=== PATIENT | male | born 1950 | race Caucasian/White ===

== ENCOUNTER 2016-12-06 11:08 | Emergency (ER) | payer OTHER ==
[~2016-12-06] VITALS: Ht 180.3 cm; Wt 83.9 kg
[~2016-12-06 11:08] MED LIST: COZAAR100 MG PO; LISINOPRIL5 MG
[2016-12-06] MEDS ORDERED: FLOMAX0.4 MG PO (11:18)
[2016-12-06] MEDS ORDERED: DILTIAZEM 24HR120 M1 PO (16:18)
--- NOTE | 2016-12-07 01:00 | EKG ---
[facility] [address] [facility] [place], [place] [address] Signed Atrial fibrillation with rapid ventricular response Inferior infarct , age undetermined Abnormal ECG No previous ECGs available Confirmed by MAIK DARLING MD ([id number]) on 12/07/2016 1:00:22 AM Electronically Signed By: MAIK DARLING MD 12/07/160 PATIENT NAME: QUENTIN WAYNE CAMILO Electrocardiogram DATE OF : 54 PHYSICIAN: MAIK DARLING MD REPORT #: [id number] REPORT IS CONFIDENTIAL AND NOT TO BE RELEASED WITHOUT AUTHORIZATION
--- NOTE | 2016-12-07 01:01 | EKG ---
[facility] [address] [place] [address] Signed Normal sinus rhythm Left axis deviation Inferior infarct (cited on or before 06-DEC-2016) Abnormal ECG When compared with ECG of 06-DEC-2016 11:16, (Unconfirmed) Sinus rhythm has replaced Atrial fibrillation Vent. rate has decreased BY 100 BPM Confirmed by MAIK DARLING MD ([id number]) on 12/07/2016 1:01:21 AM Electronically Signed By: MAIK DARLING MD 12/07/16 0101 PATIENT NAME: QUENTIN WAYNE CAMILO Electrocardiogram DATE OF : 54 PHYSICIAN: MAIK DARLING MD REPORT #: [id number] REPORT IS CONFIDENTIAL AND NOT TO BE RELEASED WITHOUT AUTHORIZATION
[2016-12-07] MEDS ORDERED: ADVIL200 MG PO (10:01)
== END 2016-12-06 16:39 | disposition home or self-care (01) ==
LOC: ED 11:08
DX: I48.91 Unspecified atrial fibrillation (principal); I10 Essential (primary) hypertension; Z87.442 Personal history of urinary calculi; Z79.899 Other long term (current) drug therapy
CPT/HCPCS: 71010; 80053; 83735; 84484; 85025; 85610; 93005; 93010; 96361; 96374; 96375; 99284; J2704; J7030

== ENCOUNTER 2016-12-06 23:39 | Inpatient (IN) | payer OTHER ==
[~2016-12-06] VITALS: Ht 180.3 cm; Wt 83.7 kg
[~2016-12-06 23:39] MED LIST changes: +DILTIAZEM 24HR120 M1 PO; +FLOMAX0.4 MG PO
--- NOTE | 2016-12-07 03:10 | NUR ---
PT ARRIVED TO FLOOR VIA STRETCHER WITH DIRECTOR INSTITUTION. PT AT BEDSIDE. PT TRANSFERED TO BED ON HIS OWN. PT HR INCREASED TO 140'S WITH ACTIVITY. WILL ENCOURAGE REST AT THIS TIME.
--- NOTE | 2016-12-07 03:30 | NUR ---
PT ASSESSMENT COMPLETED. 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 SMILE SYMETRICAL. PT IS VERY TALKATIVE AND TALKING ABOUT HIS LIFE NAD CAREER. PT HR WHEN RESTING IS 80-110'S AND WHEN PT STANDS TO USE URINAL PT HR INCREASED TO 150. WILL ENCOURGAE TO REST AT THIS TIME.
--- NOTE | 2016-12-07 04:46 | NUR ---
NURSING HOME SERVICE DEMONSTRATOR, MYSELF, AND PATIENT IN PATIENT ROOM TO COUNT PT MONEY IN HIS WALLET AND PLACE IN HOSPITAL SAFE. HOME SERVICE DEMONSTRATOR BROUGHT MONEY TO SAFE. PT HAS TICKET TO RETRIEVE MONEY IN HIS WALLET.
--- NOTE | 2016-12-07 08:04 | EKG ---
[facility] [address] [place] [address] Signed Atrial fibrillation with rapid ventricular response with premature ventricular or aberrantly conducted complexes Left axis deviation Inferior infarct (cited on or before 06-DEC-2016) Abnormal ECG When compared with ECG of 06-DEC-2016 23:44, (Unconfirmed) Previous ECG has undetermined rhythm, needs review Confirmed by MAIK DARLING MD ([id number]) on 12/07/2016 8:04:32 AM Electronically Signed By: MAIK DARLING MD 12/07/16 0804 PATIENT NAME: QUENTIN WAYNE Electrocardiogram DATE OF : 54 PHYSICIAN: MAIK DARLING MD REPORT #: [id number] REPORT IS CONFIDENTIAL AND NOT TO BE RELEASED WITHOUT AUTHORIZATION
--- NOTE | 2016-12-07 08:56 | NUR ---
PT HEART RATE INCREASED TO THE 150'S CARDIZEM 5MG IVP GIVEN AT THIS TIME, HEART RATE NO CHANGE DR MUELLER NOTIFIED.
--- NOTE | 2016-12-07 09:16 | NUR ---
TALKED WITH DR DARLING NEW ORDER ON MEDICATIONS. PHARMANCY NOTIFIED ALSO OF NEW ORDERS. PT HERE ALSO AT THIS TIME.
--- NOTE | 2016-12-07 09:22 | NUR ---
pt able to feel that his heart rate has chnaged. medicated with 120mg cardizem at this time. heart rate 140's at this time.
--- NOTE | 2016-12-07 09:27 | NUR ---
PT C/O JAW AND TOUNGE PAIN AT THIS TIEM DR DARLING NOTIFIED NEW ORDER RECEIVED, 5MG CARDIZEM PUSH GIVEN AT THIS TIME. HEART RATE DID NOT RESPONED CONTIOUES TO BE IN THE 134-150 AND IRREGULAR AT THIS TIME.
[2016-12-07] MEDS ORDERED: ADVIL200 MG PO (10:01)
--- NOTE | 2016-12-07 10:02 | NUR ---
MED REC COMPLETE--PER PATIENT
--- NOTE | 2016-12-07 10:13 | NUR ---
PT UP TO THE BATHROOM, HAD BMAND BACK TO BED. HEART RATE INCREASED TO THE 200'S AND BACK TO THE 120-130 BUT VERY IRREGULAR AT THIS TIME.
--- NOTE | 2016-12-07 10:39 | NUR ---
STARTED CARDIZEM DRIP AT THIS TIME AT 5MG/HR DUE TO HEART RATE INCREASED TO THE 180-200'S WHEN UP. CURRENT HR IS 120-130'S.
--- NOTE | 2016-12-07 10:57 | NUR ---
CONTIOUES TO BE ON THE CARDIZEM DRIP AT 5MG/HR HEART RATE REMAISN IRREGULAR FROM 1TEENS-150'S AT THIS TIME.
--- NOTE | 2016-12-07 11:52 | NUR ---
PT WAS ADMITTED EARLY THIS MORNING TO CCU. HE SEEMED ALERT, ORIENTED AND NOT TO UPSET WITH THE NEW ONSET AFIB ACCORDING TO HIM. HE SHARED HIS BACKGROUND, AND WHAT BROUGHT HE AND HIS TO [place].. HIS CAME VERY PLEASANT, EXTENDED A BLESSING. HE COMMENTED ON HOW PROFESSIONAL AND PLEASANT EVERYONE HAS BEEN. HE SEEMED CONFIDENT IN CARE HE IS RECEIVING. WILL FOLLOW NEEDED
--- NOTE | 2016-12-07 12:11 | NUR ---
PT RECEIVED HIS LUNCH AND WHEN HE STARTED TO EAT HEART RATE INCREASED TO THE 170'S PT C/O'S OF BEING HAT AND SWEATING. NO CHEAST PAIN, JAW, OR TOUNGE PAIN AT THIS TIME. BP 105/70 (75). WITH EATTING HEART RATE REMAINS IN THE 130-150'S. AND AT TIMES INTO THE 160'S
--- NOTE | 2016-12-07 12:16 | NUR ---
PT REMAIN ON THE CARDIZEM DRIP AT 5MG/HR
--- NOTE | 2016-12-07 15:13 | NUR ---
PT C/O CHEST 07/20 AT THIS TIME, AND DR DARLING NOTIFIED NEW ORDERS RECEIVED.
--- NOTE | 2016-12-07 15:18 | NUR ---
DR DARLING NOTIFIED OF PT CHANGES, NEW ORDERS, EKG AND TROPIN T ORDERED. HEART RATE 95-100" AND BP 113/74 AT THIS TIME
--- NOTE | 2016-12-07 15:28 | NUR ---
CHEST PAIN IS GONE AT THIS TIME, HEART RATE REMAINS IN THE 100'S AND BP 113/74 AT THIS TIME. L;AB HERE TO OBTAIN SAMPLE.
--- NOTE | 2016-12-07 16:57 | NUR ---
DR MILLS IN THE UNIT AT THIS TIME, NEW ORDERS RECEIVED. LOPRESSOR 25MG PO GIVEN AT THIS TIME AND CARDIZEM DRIP INCREASED TO 5MG/HR. THIS DUE TO HEART RATE 120'S-130'S AT TIMES.
--- NOTE | 2016-12-07 17:24 | NUR ---
PT ORDERED DINNER AT THIS TIME, HEART RATE CONTIOUES TO BE IN THE 90-100'S AT TIMES, CARDIZEM DRIP REMAINS AT 5MG/HR. NO FURTHER C/O'S PAIN OR NUMBNESS.
--- NOTE | 2016-12-07 18:02 | NUR ---
PT UP TO THE BATHROOM HEART RATE INCREASED, BUT CAME BACK DOWN. SITTING AT THE EDGE OF THE BED TO EAT AND HEART RATE REMAINS IN THE 130'S WITH SITTING UP
--- NOTE | 2016-12-07 18:36 | NUR ---
cardizem drip off at this time, heart rate 84, 94/59 (65). pt lying in bed no c/o's at this time, is at the bedside.
--- NOTE | 2016-12-07 19:30 | NUR ---
PT REPORT RECIVED. PT CURRENTLY OFF CARDIZEM GTT. WILL CONTINUE TO CLOSELY MONITOR.
--- NOTE | 2016-12-07 20:35 | NUR ---
PT ASSESSMENT COMPLETED. PT REMAINS IN A.FIB AT THSI TIME WITH DILTIAZEM GTT OFF. PT IS UP AND DOWN. ENCOURAGED TO TRY AND REST AND NOT CONTINUE GETTING UP AND DOWN.
--- NOTE | 2016-12-07 21:56 | NUR ---
PT RESTING IN BED. RESTARTED DILTIAZEM GTT AT 2.5. PT HR MAINTAINING 110-125 FOR LAST 15 MINUTES. WILL CONTINUE TO CLOSELY MONITOR. ENCOURAGED PT TO TRY AND REST AND NOT GET UP AT THIS TIME. ASKED PT TO CALL IF HE NEEDS TO GET UP SO HE DOES NOT PULL OUT HIS IV.
--- NOTE | 2016-12-07 22:15 | NUR ---
PT REMAINS SOMEWHAT RESTLESS. ENCOURAGED PT TO GET SOME REST AND TRY TO RELAX AT THIS TIME. UPON ADMIT PT DID INFORM STAFF HE OCCASIONALLY DRINKS WINE WITH HIS . NO SWEATING OR SHAKINESS PRESENT. PT IS ALERT AND ORIENTED AT THIS TIME. WILL CONTINUE TO CLOSELY MONITOR PT.
--- NOTE | 2016-12-07 23:37 | NUR ---
PT UP AT BEDSIDE ENTERED ROOM. PT LAYING BACK DOWN AT THIS TIME. ENCOURAGED PT TO GET REST TO HELP TO HR STATUS. WILL CONTINUE TO MONITOR.
--- NOTE | 2016-12-08 01:00 | NUR ---
PT RESTING IN BED AT THIS TIME. WILL CONTINUE TO [facility].
--- NOTE | 2016-12-08 03:27 | NUR ---
PT RESTIN IN BED AT THIS TIME. WILL CONTINUE TO MONTIOR.
--- NOTE | 2016-12-08 04:37 | NUR ---
PT TELE OFF. ENTERED ROOM AND PT UP OUT OF BED. EXPLAINED TO PT HE NEEDS TO TRY AND REST AND RELAX AT THIS TIME. WITH ACTIVITY PT HR UP TO 140. ONCE PT SITTING BACK DOWN AND RELAXING PT HR 100-110. PT DILTIAZEM GTT CURRENTLY AT 5. WILL CONTINUE TO CLOSELY MONITOR.
--- NOTE | 2016-12-08 06:17 | NUR ---
PT RESTING IN BED AT THIS TIME. WILL CONTINUE TO MONITOR.
--- NOTE | 2016-12-08 06:40 | NUR ---
increased cardizem gtt to 7.5. will continue to closely monitor.
--- NOTE | 2016-12-08 08:37 | NUR ---
REPORT RECEIVED FROM ELI BERNSTEIN. PT'S ARRIVES AROUND 0815. DISCUSSED WITH PT'S CONCERNS ABOUT PATIENT WANTING TO LEAVE THIS HOSPITAL TO BE SEEN BY A DIAZO TECHNICIAN AND AN CANVAS WORKER APPRENTICE. ASSESSMENT COMPLETE. PATIENT APPEARS SOMEWHAT ANXIOUS/AGITATED AND IS VERY EAGER TO "MOVE FORWARD WITH A PLAN TO TREAT HIS HEART." PATIENT EDUCATION UNDERTAKEN AND ATTEMPTED TO EDUCATE PATIENT ON CURRENT TREATMENTS HE IS RECEIVING IN THE HOSPITAL, SUCH A CARDIZEM DRIP AND PO MEDICATIONS TO HELP CONTROL HIS HEART RATE. PATIENT DOES NOT THINK THAT "ANYONE IN THIS HOSPITAL IS CAPABLE OF GIVING HIM THE TREATMENT HE NEEDS." WHILE PT SITTING IN BED, HEART RATE IS IN THE 100-110, AFIB. PATIENT UP TO BATHROOM AND HEART RATE ELEVATES TO HIGH 170s. PT DENIES FEELING DIZZY OR HAVING ANY CHEST PAIN WITH THIS HIGH OF A HEART RATE. PT NOW SITTING IN CHAIR. PT DENIES BEING HUNGRY FOR BREAKFAST BUT ENCOURAGED TO ORDER SOME FOOD, AND HIS CAM HELPS PATIENT ORDER BREAKFAST. PATIENT'S OUTSIDE OF THE ROOM STATES, "HE'S GOOFY." QUESTIONED HER FURTHER ON THIS AND SHE AGREES THAT HIS DEMEANOR AND BEHAVIOR IS OUTSIDE OF HIS NORMAL. CONTINUE TO MONITOR.
--- NOTE | 2016-12-08 09:33 | NUR ---
DR. MILLS IN ROOM EVALUATING PATIENT AND DISCUSSING PT'S PLAN OF CARE WITH PT AND WITH HIS . HEART RATE WHILE RESTING IN BED IS ANYWHERE FROM 88-110. PT ATE A GOOD PORTION OF BREAKFAST. DILT GTT NOW INFUSING AT 10 MG/HR. PT STILL SOMEWHAT CONFUSED ABOUT TREATMENT PLAN AND WANTING TO POTENTIALLY D/C. CONTINUE TO MONITOR.
--- NOTE | 2016-12-08 10:47 | NUR ---
HEARD PATIENT CALLING MY NAME OUT AND WENT TO CHECK ON PATIENT. PT REPORTS "WHATEVER THAT MIXTURE OF DRINK YOU JUST GAVE ME, MADE ME SHORT OF BREATH AND DIZZY FOR ABOUT 3-4 MINUTES. I'M NOT NOW, BUT I WAS A FEW MINUTES AGO." PATIENT'S BLOOD PRESSURE RE-CHECKED AND IS 90/60 (66) AT THIS TIME. HEART RATE IN THE 70-80s AT THIS TIME. DILT GTT AT 5 MG/HR. PT ASKING QUESTIONS ABOUT THE IV INFUSIONS HE IS RECEIVING. PT'S HAS LEFT FOR NOW BUT STATES SHE WILL RETURN AROUND 1200. PT'S ASKED HOW MUCH ETOH PT DRINKS AND SHE STATES, "I'M GONE A LOT FOR WORK, THEREFORE I'M NOT COMPLETELY SURE, BUT I DO KNOW IT'S NOT UNCOMMON FOR HIM TO HAVE A BEER WITH BREAKFAST." SHE ALSO REPORTS THAT HE STOPPED DRINKING AFTER TYRELL TIME, BUT RESUMED DRINKING ABOUT A MONTH AGO. PT'S REPORTED LAST DRINK WAS POTENTIALLY SATURDAY OF LAST WEEK. CONTINUE TO MONITOR. PT ORIENTED TO CALL LIGHT AND HOW TO USE IT.
--- NOTE | 2016-12-08 12:04 | NUR ---
PATIENT YELLS OUT "CYDNEY!" FROM HIS ROOM. PT NOTED TO BE STANDING AT BEDSIDE AND STATES, "SOMETHINGS WRONG! I'M LOOPY AND IM NOT SURE WHAT IS GOING ON AROUND HERE. THE CEILING IS THE FLOOR." PATIENT HELPED BACK INTO BED HE FURTHER DESCRIBED HIS FEELINGS. PT ALSO NOTED THAT HE WAS SHORT OF BREATH, HOWEVER PATIENT APPEARS TO BE BREATHING AT A RELATIVELY NORMAL RATE OF 18 AND NO USE OF ACCESSORY MUSCLES NOTED. PT ASKED TO PLEASE STAY IN BED WHILE HE IS FEELING THIS WAY. BLOOD PRESSURE CHECKED AND FOUND TO BE 112/74. PT'S HEART RATE IS TRENDING DOWN AND NOW RANING INTHE 60-80s. DILT GTT TURNED OFF AT THIS TIME. DR. MILLS TO BE NOTIFIED OF PT'S EXPRESSION OF SOB AND CONFUSION. PT IS HOWEVER ALERT AND ORIENTED. CONTINUE TO MONITOR.
--- NOTE | 2016-12-08 12:40 | NUR ---
PATIENT NOTED TO BE UP IN ROOM AND ATTEMPTING TO UNPLUG IV POLES. PT ASKED AGAIN TO PLEASE USE CALL LIGHT BEFORE GETTING UP OUT OF BED AND ATTEMPTING TO WALK AROUND IN ROOM. PT NEEDING TO USE THE BATHROOM. PT ASKED TO USE URINAL TO VOID INTO. PT USES URINAL AND THEN DUMPS THE URINE IN THE TOILET AND FLUSHES. PT AGAIN ASKED TO ALLOW THE RN TO DO THIS SO WE CAN MONITOR HOW MUCH HE VOIDS. PT AGREEABLE BUT KEEPS SAYING "I'M FINE, I DON'T NEED YOU TO DO THAT FOR ME." LUNCH ORDERED FOR PATIENT. PT ASKED IF HE IS INTERESTED IN HAVING AN ALCOHOLIC BEVERAGE WITH HIS LUNCH AND HE STATES, "YA KNOW, AFTER ALL OF THIS, I'M NOT SURE I'M EVER GOING TO DRINK AGAIN. I LIKE TO HAVE A GLASS OF WINE WITH CAM AT DINNERTIME, BUT WHY MESS UP A GOOD THING WHEN YOU GOT A GOOD THING GOING." PT AGAIN ASKED AND INSTRUCTED TO USE CALL LIGHT BEFORE HE GETS UP OUT OF BED. PT AGREEABLE.
--- NOTE | 2016-12-08 14:29 | NUR ---
PATIENT ATE APPROX 75% OF HIS LUNCH. PT'S NOW BACK IN ROOM. PT IN GOOD SPIRITS AND WANTING TO KNOW IF WE CAN TAKE OUT HIS IV NOW THAT HIS IV INFUSIONS ARE DONE. PATIENT ALSO ASKING WHEN WE ARE GOING TO TAKE OFF HIS HEART MONITOR. PT RE-INFORMED OF PLAN WHILE HE IS IN THE HOSPITAL. PT AMBULATES DOWN TO SHOWER AND SHOWERS INDEPDENTELY WITHOUT DIFFICULTY. PT VERY STEADY ON HIS FEET. PT DENIES HAVING ANY FURTHER LIGHTHEADED/DIZZY/SOB EPISODES SINCE EARLIER THIS AM. CONTINUE TO MONITOR.
--- NOTE | 2016-12-08 15:46 | EKG ---
[facility] [address] [facility] [place] [address] Signed Atrial fibrillation with rapid ventricular rate with premature ventricular or aberrantly conducted complexes Left axis deviation Inferior infarct (cited on or before 06-DEC-2016) Possible Anterior infarct , age undetermined Abnormal ECG Confirmed by SALAS MILLS MD ([id number]) on 12/08/2016 3:46:01 PM Electronically Signed By: SALAS MILLS MD 12/08/16 1546 PATIENT NAME: ROSANAQUENTIN ALLEN Electrocardiogram DATE OF : 54 PHYSICIAN: SALAS MILLS MD REPORT #: [id number] REPORT IS CONFIDENTIAL AND NOT TO BE RELEASED WITHOUT AUTHORIZATION
--- NOTE | 2016-12-08 15:46 | EKG ---
[facility] [address] [facility] [place] [address] Signed Atrial fibrillation with rapid ventricular response with premature ventricular or aberrantly conducted complexes Left axis deviation Inferior infarct (cited on or before 06-DEC-2016) Abnormal ECG When compared with ECG of 07-DEC-2016 00:46, (Unconfirmed) No significant change was found Confirmed by SALAS MILLS MD ([id number]) on 12/08/2016 3:46:27 PM Electronically Signed By: SALAS MILLS MD 12/08/16 1546 PATIENT NAME: QUENTIN WAYNE Electrocardiogram DATE OF : 54 PHYSICIAN: SALAS MILLS MD REPORT #: [id number] REPORT IS CONFIDENTIAL AND NOT TO BE RELEASED WITHOUT AUTHORIZATION
--- NOTE | 2016-12-08 15:47 | EKG ---
[facility] [address] [facility] [place] [address] Signed Atrial fibrillation with rapid ventricular response with premature ventricular or aberrantly conducted complexes Left axis deviation Inferior infarct (cited on or before 06-DEC-2016) Abnormal ECG When compared with ECG of 07-DEC-2016 07:44, (Unconfirmed) No significant change was found Confirmed by SALAS MILLS MD ([id number]) on 12/08/2016 3:46:54 PM Electronically Signed By: SALAS MILLS MD 12/08/16 1547 PATIENT NAME: QUENTIN WAYNE Electrocardiogram DATE OF : 54 PHYSICIAN: SALAS MILLS MD REPORT #: [id number] REPORT IS CONFIDENTIAL AND NOT TO BE RELEASED WITHOUT AUTHORIZATION
--- NOTE | 2016-12-08 16:13 | NUR ---
DR. MILLS IN ROOM TO RE-EVALUATE PATIENT. PT REPORTS NOT BEING ABLE TO SLEEP. PATIENT APPEARS SOMEWHAT DELIRIOUS AND CONFUSED. PT EXPLAINS HIS FEELING OF FEELING DIZZY EARLIER AND THE PICTURE ON THE WALL WITH THE LEWIS BECOMING BLURRY YESTERDAY. PT REORIENTED THAT THIS OCCURED TODAY, NOT YESTERDAY. PT NOW TELLING RN AN ELABORATE STORY ABOUT A FISHING TRIP HE WOULD LIKE TO TAKE THREE GALS ON. PT REMAINS IMPULSIVE, DETACHING HIMSELF FROM THE HEART MONITOR AND AMBULATING INTO THE BATHROOM INDEPENDENTLY, DESPITE BEING ASKEED TO CALL RN PRIOR TO GETTING OUT OF BED. IV RE-DRESSED DUE TO SOME DRIED BLOOD ON DRESSING. CONTINUE TO [facility].
--- NOTE | 2016-12-08 16:30 | NUR ---
PATIENT MOVED TO A TELEMETRY TO ALLOW PATIENT TO HAVE A LITTLE MORE INDEPENDANCE IN THE ROOM. PT SEEMS BORED. CONTINUE TO MONTIOR.
--- NOTE | 2016-12-08 18:29 | NUR ---
CALLED [facility] ABOUT OBTAINING MEDICAL RECORDS FROM [id number] S/P ABLATION PROCEDURE. PHYSICAL CHART WILL HAVE TO BE RETRIEVED AND INSTRUCTED BY THE [facility] CLINICAL STUDIES SPECIALIST TO CALL BACK IF NO RECORDS HAVE BEEN RECEIVED BY Saturday.
--- NOTE | 2016-12-08 19:21 | NUR ---
PATIENT ASKING FOR HIS SHIRT TO PUT ON AND DOESN'T UNDERSTAND WHY HE NEEDS TO STAY IN A GOWN. PT INSTRUCTED ABOUT BEING IN THE HOSPITAL AND THE NECESSITY TO WEAR A PATIENT GOWN. PT CONTINUES TO AMBULATE INTO BATHROOM INDEPENDENTLY AND VOIDS AND HAS A LIQUID BM. PT NOW ASKING FOR A BEER. DR. MILLS NOTIFIED AND ORDER REC'D TO ALLOW PT TO HAVE 1-2 BEERS. PT'S HEART RATE IN THE 70-80s AT REST. CONTINUE TO MONITOR. REPORT TO FILING CLERK RNs.
--- NOTE | 2016-12-08 19:45 | NUR ---
PT SHIFT REPORT GIVEN. PT AT BEDSIDE AT THIS TIME. WILL COTNINUE TO CLOSELY MONITOR.
--- NOTE | 2016-12-08 20:45 | NUR ---
PT RESTING IN BED WHEN I ENTERED ROOM. PT PLEASENT, BUT APEARS CONFUSED. PT AWARE HR IS IN A.FIB AND HE IS RECIVING MEDICATIONS TO HELP CONTROL IT, BUT REMOVES THE TELEMETRY AT TIME AND STATES HE DOESNT KNOW WHAT IT IS FOR EVEN AFTER EXPLANING. WILL CONTINUE TO CLOSELY MONITOR AT THIS TIME.
--- NOTE | 2016-12-08 21:00 | NUR ---
PT ASSESSMENT COMPLETED. FILER FINISH ARE STRONG AND EQUAL, FACIAL EXPRESIONS SYMETRICAL. PT IS IMPULSIVE, BUT PLEASANT. WILL CONTINUE TO CLOSELY MONITOR PT AND REORIENT NEEDED.
--- NOTE | 2016-12-08 23:00 | NUR ---
PT UP TO BATHROOM AND PULLING AT TELE. REORIENTED PT AND ENCOURAGED TO GO BACK TO BED TO TRY AND GET SOME REST. WILL CONTINUE TO CLOSELY MONITOR.
--- NOTE | 2016-12-08 23:40 | NUR ---
CALLED MD TO UPDATED MD. PT IS VERY RESTLESS AND REMEMBERS HE IS AT THE HOSPITAL BUT DOES NOT REMEMBER WHY HE IS HERE OR MEDICAL PROCEDURES AND TREATMENTS HE HAS RECIVED SINCE HIS ADMITION. MD ORDERED ONE TIME DOSE OF SEROQUEL. PT HAS NOT SLEPT MUCH PAST SEVERAL DAYS. WILL CONTINUE TO MONITOR.
--- NOTE | 2016-12-09 | NUR ---
PT IN HALLWAY FULLY CLOTHED IN HOME CLOTHES WITH BELONGINGS IN HAND. PT KNOWS HE IS IN THE HOSPITAL BUT DOES NOT REMBER WHY HE IS HERE OR TREAMENT HE IS RECIVING. PT IS UPSET WITH HIS . PT STATES "I DONT KNOW WHY SHE WOULD JUST LEAVE ME HERE BY MYSELF AND GO HOME WITHOUT ME". REORIENTED PT THAT IT IS THE MIDDLE OF THE NIGHT AND HIS WENT HOME TO GO TO BED. PT WANTED TO CALL . CALLED PT AND UPDATED REGUARDING SITUATION. PT TALKED WITH HER AND DECIDED SHE WOULD COME IN AND STAY WITH HIM FOR THE NIGHT.
--- NOTE | 2016-12-09 01:00 | NUR ---
GAVE PT HIS MEDICATIONS SINCE HE IS AWAKE. PT IS LAYING DOWN IN BED WITH AT BEDSIDE. WILL CONTINUE TO ENCOURAGE REST AND MONITOR. WILL CALL MD IF PT REMAINS UNABLE TO SLEEP.
--- NOTE | 2016-12-09 01:45 | NUR ---
NOTICED PT HR 120 WITH ARTIFACT. ENTERED PT ROOM TO CHECK ON PT. PT STATED PT WAS ABLE TO SLEEP AND JUST NEEDED TO GET UP AND PEE. UPDATED TO LET ME KNOW IF PT CANT GO BACK TO SLEEP. WILL CONTINUE TO MONITOR.
--- NOTE | 2016-12-09 03:40 | NUR ---
PT WOKE AT 0315 AND REMOVED HIS TELEMETRY. PTS CALLED ME INTO THE ROOM. PT IS VERY CONFUSED AND DOES NOT KNOW WHERE HE IS OR WHAT IS GOING ON. TALKED WITH PT AND PT AND ASKED HIM TO PLEASE STAY HERE WHILE I SPEAK WITH THE MD. PT IS CONFUSED AND WONDERING AROUND CCU UNIT WITH . CALLED MD. PER MD NEW ORDER FOR CT WITHOUT CONTRAST.
--- NOTE | 2016-12-09 03:45 | NUR ---
CALLED MD BACK TO UPDATE PT IS HESITANT ABOUT THE SCAN AND MAY NOT FOLLOW THROUGH WITH THIS PLAN. PER MD GIVE ANOTHER DOSE 12.5 SEROQUEL.
--- NOTE | 2016-12-09 03:50 | NUR ---
PT FOLLOWING COMANDS AT THIS TIME AND STATES HE IS NOW ON BORED WITH THE SCAN. PT BROUGHT TO CT SCANNER WITH DAVID, THIS RN, AND PT . PT BROUGHT TO CT IN A WHEELCHAIR.
--- NOTE | 2016-12-09 04:00 | NUR ---
DID NOT TAKE 0400 VITALS PER ORDER. WHEN PT WEARING TELE. STAFF WERE ABLE TO CLOSELY MONITOR HR. MD AWARE PT REMOVED FOR A PERIOD OF TIME AND REFUSED TO HAVE IT REPLACED.
--- NOTE | 2016-12-09 04:10 | NUR ---
PT FOLLOWING COMMANDS AND WAS COOPERATIVE WITH CT SCAN. PT BACK IN ROOM AT THIS TIME.
--- NOTE | 2016-12-09 04:15 | NUR ---
ASKED PT IF I COULD PLACE HIS TELEMETRY BACK ON TO MONITOR HIS HEART. PT WAS OKAY WITH REPLACING TELE. I ASKED THE PT TO RELAX IN HIS ROOM AND REORIENTED HIM TO THE [place]CE. PT STATED "I MAY JUST LAY BACK DOWN HERE AND TRY TO GET SOME SLEEP". I RECOMENDED THAT WOULD BE A GREAT IDEA. WILL CONTINUE TO CLOSELY MONITOR.
--- NOTE | 2016-12-09 04:37 | NUR ---
PT SUB PLANT MANAGER ARE STONG AND EQUAL, FACE IS SYMETRICAL, SHOULDER SHRUG IS EQUAL. WILL CONTINUE TO MONITOR.
--- NOTE | 2016-12-09 05:00 | NUR ---
ANGELINE CHONG TO UPDATE ON PATIENTS STATUS. READ CT RESULTS. DOES NOT WANT TO GIVE ANY OTHER MEDICATIONS AT THIS TIME. WILL DRAW LABS THIS AM AND NEW ORDERS FOR A UA. PT IS HEADING HOME AT THIS ITME.
--- NOTE | 2016-12-09 05:52 | NUR ---
PT UP WANDERING THE HALLS AT THIS TIME. PT REMAINS CONFUSED BUT PLEASANT.
--- NOTE | 2016-12-09 06:45 | NUR ---
PT HEART RATE THROUGHOUT THE NIGHT HAS BEEN 70-90'S AT REST AND 90-120'S WITH ACTIVITY. PT IS CURRENTLY WEARING A TELEMETRY UNIT TO ALLOW PT TO BE MORE MOBILE. PT DENIES DIZINESS, SOB, OR CHEST PAIN WHEN ASKED. WILL CONTINUE TO MONITOR.
--- NOTE | 2016-12-09 12:00 | NUR ---
BP-88/59. DR. MILLS AWARE. LISA HELD. WILL MONITOR BP Q 1/2 HR FOR NOW. PATIENT DENIES DIZZINESS.
--- NOTE | 2016-12-09 14:10 | NUR ---
ambulating in department. HEART RATE APPROX 103. IS WITHOUT C/O.
--- NOTE | 2016-12-09 19:00 | NUR ---
UP TO BR. HR TO 170. PATIENT STATES HE IS FINE. IS ASKING MANY QUESTIONS ABOUT MEDICATIONS AND HOW AND WHO MAKES THEM. HAS WILD LOOK IN EYE. IS PARANOID. DR. MILLS UPDATED. HE WILL COME TO SEE PATIENT. PATIENT FACE IS FLUSHED.
--- NOTE | 2016-12-09 19:10 | NUR ---
LINA SWEENEY HERE TO SEE PATIENT. PATIENT IS VERY UPSET AND REFUSING TO TALK TO MD. HR REMAINS IN 170. CONTIUNE TO BE PARANOID.
--- NOTE | 2016-12-09 19:10 | NUR ---
ENC PATIENT TO LAY DOWN. STAFF CALLED PATIENT .
--- NOTE | 2016-12-09 19:30 | NUR ---
REFUSING MEDICATION THAT WAS ORDERED BY DR. MILLS. NEXT SHIFT AWARE.
--- NOTE | 2016-12-09 19:39 | NUR ---
REPORT GIVEN. IS IN ROOM TALKING WITH PATIENT. PATIENT REMAINS AGITATED.
--- NOTE | 2016-12-09 19:45 | NUR ---
PT HR 110-130 AT REST A THIS TIME. MD IS AWARE. WHILE MD WAS IN ROOM PT HR WAS 140-180.
--- NOTE | 2016-12-09 19:45 | NUR ---
MD AWARE PT WILL NOT TAKE MEDICATIONS AT THSI TIME. WILL REASSESS AT A LATER TIME. PT AT BEDSIDE TRYING TO TALK WITH PT AND HELP CALM PT DOWN. WILL GIVE PT TIME WITH TO TRY AND RELAX.
--- NOTE | 2016-12-09 20:10 | NUR ---
PT CAME OUT AND SAID PT WOULD LIKE TO TAKE HIS MEDICATIONS NOW. TALKED WITH PT AND EXPLAINED WHAT I WAS GIVING BEFORE ADMINISTERING. PT TOOK MEDICATIONS WITH NO ISSUES. PT ASSESSMENT COMPLETED AT THIS TIME. PT LUNGS CLEAR AND BOWEL TONES ACTIVE. PT USES BATHROOM ON HIS OWN. PT WILL REMAIN AT BEDSIDE THROUGHOUT THE NIGHT.
--- NOTE | 2016-12-09 20:30 | NUR ---
GOT PT ICE CREAM AND PILLOWS AND BLANKETS FOR HIS . EDUCATED PT AND IF THEY NEED ANYTHING AT ALL TO CALL US. WILL CONTINUE TO MONITOR.
--- NOTE | 2016-12-09 20:57 | NUR ---
PT UP TO BATHROOM AND PT HR 120'S WITH ACTIVITY. WHILE PT RESTING IN BED HR NOW 80-100'S.
--- NOTE | 2016-12-09 22:00 | NUR ---
pt came out at 2200 and needed to go home for some beloningings and stated she would be back just shortly. per pt pt has been sleeping. will continue to monitor.
--- NOTE | 2016-12-09 23:56 | NUR ---
PT BACK TO CCU AT 2245. PT HAS BEEN SLEEPING DURING THIS TIME. NO OTHER ISSUES. WILL CONTINUE TO ENCOURCOURAGE REST AT THIS TIME.
--- NOTE | 2016-12-10 00:33 | NUR ---
PT FULL ASSESSMENT HELD PER ORDERS TO ALLOW PT TO REST SINCE PT HAS NOT SLEPT MUCH THE DAST 3 DAYS. PT REMAINS ON TELEMETRY AND AT BEDSIDE. WILL CONTINUE TO CLOSELY MONITOR.
--- NOTE | 2016-12-10 02:26 | NUR ---
GAVE PT MEDICATION LATE D/T PT FINALLY ABLE TO REST. PT HAS NOT SLEPT MUCH THE LAST 3 NIGHTS. PT UP TO BATHROOM. WILL CONTINUE TO CLOSELY MONITOR. WHEN PT UP TO BATHROOM PT HR 100-120. AT REST HR 80-100. WILL CONTINUE TO ENCOURAGE REST AT THIS TIME.
--- NOTE | 2016-12-10 04:00 | NUR ---
PT TELEMETRY OFF. ENTERED PT ROOM. PT SITTING ON SIDE OF BED. ASKED PT IF I COULD FIX THE MONITOR AND PT DENIED STATING "I DON'T WANT TO WEAR THAT ANY LONGER". EDUCATED PT THE PURPOSE OF MONITORING HIS HEART. PT CONTINUED TO REFUSE. PT AT BEDSIDE AND ASKED TO HAVE A FEW MINUTES TO TALK WITH PATIENT. EDUCATED TO CALL WHEN THEY MADE A PLAN AND IF I COULD REPLACE THE MONITOR. WILL CONTINUE TO MONITOR.
--- NOTE | 2016-12-10 04:45 | NUR ---
PT CAME OUT TO GET ME. PT OKAY WITH TELE MONITOR GOING BACK IN PLACE TO MONITOR HR THE REMAINDER OF THE MORNING. SANJU LCONTINUE TO MONITOR.
--- NOTE | 2016-12-10 05:48 | NUR ---
pt resting in room at this time. headed home to gather some patient belonging to bring in for pt. will continue to monitor.
--- NOTE | 2016-12-10 06:30 | NUR ---
PT RESTING IN BED. WILL CONTINUE TO MONTIOR.
--- NOTE | 2016-12-10 07:04 | NUR ---
PT REFUSING TO TAKE MORNING CARDIZEM, BUT STATES HE WILL TAKE IT WHEN HIS GETS BACK TO THE HOSPITAL. PT RESTING IN BED AT THIS ITME. WILL CONTINUE TO MONITOR. PT STATED SHE WOULD BE BACK AROUND 7AM.
--- NOTE | 2016-12-10 07:41 | NUR ---
REPORT RECEIVED FROM ELI BERNSTEIN. PT REFUSING TO TAKE ANY FURTHER MEDICAITONS UNTIL HIS GABRIELLE RETURNS FROM HOME, WHICH SHE DOES AT 0730. DISCUSSED PLAN OF CARE WITH DR. MILLS BRIEFLY AND SOME CHANGES TO BE MADE REGARDING PT'S DOSE OF CARDIZEM. CURRENTLY ON TELE #10, HR IS 90-105, AFIB. CONTINUE TO MONITOR.
--- NOTE | 2016-12-10 08:28 | NUR ---
PT ORIENTED, EXCEPT TO DATE. AT BEDSIDE. PLANS TO RETURN HOME AT DISCHARGE WITH . NO BARRIERS KNOWN.
[2016-12-10] MEDS ORDERED: METOPROLOL SUC200 MG PO (09:26)
--- NOTE | 2016-12-10 09:26 | NUR ---
DR. MILLS IN ROOM TO EVALUATE PATIENT. PT TO D/C HOME THIS AM ON TWO NEW PRESCRIPTIONS FOR HEART RATE CONTROL. PT'S AFFECT REMAINS VERY FLAT AT THIS TIME AND PATIENT DOES NOT CONTRIBUTE TO DISCUSSION VERY MUCH. PT'S CAM IN ROOM AND ATTENTIVE AND DISCUSSES CARE WITH DR. MILLS. CONTINUE TO MONITOR.
[2016-12-10] MEDS ORDERED: DILTIAZEM 24HR240 M3 PO (09:27)
[2016-12-10] MEDS ORDERED: ASPIRIN325 MG PO (09:28)
== END 2016-12-10 09:57 | disposition home or self-care (01) | DRG 308 ==
LOC: ED 23:39 → CCU 12-07 02:24
PROVIDERS: ADMIT Internal Medicine
DX: I48.1 Persistent atrial fibrillation (principal); G93.41 Metabolic encephalopathy; I10 Essential (primary) hypertension; I45.6 Pre-excitation syndrome; N40.0 Benign prostatic hyperplasia without lower urinary tract symptoms; E83.39 Other disorders of phosphorus metabolism; D69.6 Thrombocytopenia, unspecified
CPT/HCPCS: 36415; 70450; 80053; 80069; 81001; 82550; 82553; 83735; 83874; 84439; 84443; 84484; 85025; 87088; 93005; 93010; 96374; 96376; 99285; J0696; J1650; J3475

== ENCOUNTER 2016-12-25 13:37 | Emergency (ER) | payer OTHER ==
[~2016-12-25] VITALS: Ht 180.3 cm; Wt 83.7 kg
[~2016-12-25 13:37] MED LIST changes: +ADVIL200 MG PO; +ASPIRIN325 MG PO; +DILTIAZEM 24HR240 M3 PO; +METOPROLOL SUC200 MG PO
--- NOTE | 2016-12-26 18:48 | EKG ---
[facility] [address] [facility] [place] [address] Signed Atrial fibrillation Left axis deviation Abnormal ECG When compared with ECG of 07-DEC-2016 15:15, Nonspecific T wave abnormality now evident in Inferior leads Confirmed by MAIK DARLING MD ([id number]) on 12/26/2016 6:48:17 PM Electronically Signed By: MAIK DARLING MD 12/26/16 1848 PATIENT NAME: QUENTIN WAYNE Electrocardiogram DATE OF : 54 PHYSICIAN: MAIK DARLING MD REPORT #: [id number] REPORT IS CONFIDENTIAL AND NOT TO BE RELEASED WITHOUT AUTHORIZATION
== END 2016-12-25 14:34 | disposition home or self-care (01) ==
LOC: ED 13:37
DX: I48.91 Unspecified atrial fibrillation (principal); I10 Essential (primary) hypertension; Z87.442 Personal history of urinary calculi; Z90.49 Acquired absence of other specified parts of digestive tract; Z79.82 Long term (current) use of aspirin; Z79.899 Other long term (current) drug therapy
CPT/HCPCS: 71010; 80053; 83880; 84484; 85025; 93005; 93010; 99284; J7040

== ENCOUNTER 2017-01-01 09:44 | Emergency (ER) | payer OTHER ==
[~2017-01-01] VITALS: Ht 180.3 cm; Wt 83.7 kg
[2017-01-01] MEDS ORDERED: PACERONE200 MG PO (09:54)
[2017-01-01] MEDS ORDERED: COZAAR100 MG PO (09:54)
[2017-01-01] MEDS ORDERED: ELIQUIS5 MG PO (09:54)
--- NOTE | 2017-01-01 14:47 | EKG ---
[facility] [address] [facility] [place] [address] Signed Atrial fibrillation with rapid ventricular response Left axis deviation Inferior infarct , age undetermined Abnormal ECG When compared with ECG of 25-DEC-2016 13:43, No significant change was found Confirmed by SALAS MILLS MD ([id number]) on 01/01/2017 2:47:30 PM Electronically Signed By: SALAS MILLS MD 01/01/17 1447 PATIENT NAME: ROSANAQUENTIN ALLEN Electrocardiogram DATE OF : 54 PHYSICIAN: SALAS MILLS MD REPORT #: [id number] REPORT IS CONFIDENTIAL AND NOT TO BE RELEASED WITHOUT AUTHORIZATION
== END 2017-01-01 11:13 | disposition home or self-care (01) ==
LOC: ED 09:44
DX: R42 Dizziness and giddiness (principal); T50.905A Adverse effect of unspecified drugs, medicaments and biological substances, initial encounter; F41.9 Anxiety disorder, unspecified; I10 Essential (primary) hypertension; N20.0 Calculus of kidney; I48.91 Unspecified atrial fibrillation; Z90.49 Acquired absence of other specified parts of digestive tract; Z79.899 Other long term (current) drug therapy
CPT/HCPCS: 71010; 80053; 84484; 85025; 93005; 93010; 96374; 99284; J2060; J7030

== ENCOUNTER 2017-04-03 14:49 | Emergency (ER) | payer OTHER ==
[~2017-04-03] VITALS: Ht 180.3 cm; Wt 83.7 kg
[~2017-04-03 14:49] MED LIST changes: +ELIQUIS5 MG PO; +PACERONE200 MG PO
== END 2017-04-03 16:17 | disposition home or self-care (01) ==
LOC: ED 14:49
PROC: 0HQJXZZ Repair Left Upper Leg Skin, External Approach (ICD-10-PCS; principal; 2017-04-03)
DX: S71.112A Laceration without foreign body, left thigh, initial encounter (principal); I10 Essential (primary) hypertension; I48.91 Unspecified atrial fibrillation; Z87.442 Personal history of urinary calculi; Z90.49 Acquired absence of other specified parts of digestive tract; Z79.899 Other long term (current) drug therapy; W26.0XXA Contact with knife, initial encounter
CPT/HCPCS: 12001; 90471; 90714; 99282

== ENCOUNTER 2017-07-29 10:07 | Inpatient (IN) | payer OTHER, MEDICARE ==
[~2017-07-29] VITALS: Ht 182.9 cm; Wt 80.1 kg
--- OUTSIDE RECORDS SUMMARY | ~2017-07-29 | XMS | Clinical Summary ---
Demographics + + + | Address | [address] [place] [address] | | | [place] [address] | + + + | Home Phone | | + + + | Preferred Language | Unknown | + + + | Marital Status | | + + + | Evangelical Affiliation | NON | + + + | Race | White | + + + | Ethnic Group | Not or | + + + Author + + + | Author | NON REVENUE LOCATIONS | + + + | Organization | NON REVENUE LOCATIONS | + + + | Address | Unknown | + + + | Phone | Unavailable | + + + Support + + +---------+ + | Name | Relationship | Address | Phone | + + +---------+ + | Meir Wayne | ECON | Unknown | | + + +---------+ + Care Team Providers + +------+ + | Care Vat Packer Name | Role | Phone | + +------+ + | Mark Velez MD | PP | | + +------+ + Source Comments DANNA is fully live on both [facility] and [facility] Allergies No Known Allergies Current Medications Not on file Active Problems Not on file Social History + +-------+ +--------+------+ | Tobacco Use | Types | Packs/Day | Years | Date | | | | | Used | | + +-------+ +--------+------+ | Never Assessed | | | | | + +-------+ +--------+------+ + + + | Sex Assigned at | Date Recorded | | | | + + + | Not on file | | + + + Plan of Treatment + + + + + | Health Maintenance | Due Date | Last Done | Comments | + + + + + | INFLUENZA VACCINE | | | | | (FLU SHOT) | 7 | | | + + + + + Results Not on filefrom Last 3 Months"
--- OUTSIDE RECORDS SUMMARY | ~2017-07-29 | XMS | Clinical Summary ---
Demographics + + + | Address | [address] [place] [address] | | | [place] [address] | + + + | Home Phone | | + + + | Preferred Language | Unknown | + + + | Marital Status | | + + + | Advent Affiliation | NON | + + + [...] Team Providers + +------+ + | Care Core Manager Name | Role | Phone | + +------+ + | Mark Velez MD | PP | | + +------+ + Source Comments DANNA is fully live on both [facility] and [facility] InPatient.[facility] Allergies No Known Allergies Current Medications Not [...]
--- OUTSIDE RECORDS SUMMARY | ~2017-07-29 | XMS | Clinical Summary ---
Demographics + + + | Address | [address] [place] [address] | | | [place] [address] | + + + | Home Phone | | + + + | Preferred Language | Unknown | + + + | Marital Status | | + + + | Buddhist Affiliation | NON | + + + [...] Team Providers + +------+ + | Care Occ Med Physician Name | Role | Phone | + +------+ + | Mark Velez MD | PP | | + +------+ + Source Comments DANNA is fully live on both [facility] and [facility] InPatient.[facility] Allergies No Known Allergies Current [...]
[2017-07-29] MEDS ORDERED: SYNTHROID125 MCG PO (11:30)
[2017-07-29] MEDS ORDERED: FLECAINIDE ACE100 MG PO (11:31)
--- NOTE | 2017-08-12 17:32 | EKG ---
[facility] [address] [place] [address] Signed Sinus bradycardia Left axis deviation Inferior infarct (cited on or before 01-JAN-2017) Abnormal ECG When compared with ECG of 01-JAN-2017 09:48, Sinus rhythm has replaced Atrial fibrillation Vent. rate has decreased BY 56 BPM QRS duration has increased Nonspecific T wave abnormality now evident in Anterior leads Nonspecific T wave abnormality no longer evident in Lateral leads Confirmed by SALAS MILLS MD ([id number]) on 08/12/2017 5:31:51 PM Electronically Signed By: SALAS MILLS MD 08/12/17 1732 PATIENT NAME: QUENTIN WAYNE Electrocardiogram DATE OF : 54 PHYSICIAN: SALAS MILLS MD REPORT #: [id number] REPORT IS CONFIDENTIAL AND NOT TO BE RELEASED WITHOUT AUTHORIZATION
--- NOTE | 2017-08-16 07:20 | EKG ---
[facility] [address] [facility] [place] [address] Signed Normal sinus rhythm Left axis deviation Nonspecific T wave abnormality Prolonged QT Abnormal ECG When compared with ECG of 12-AUG-2017 10:17, Criteria for Inferior infarct are no longer present Confirmed by MAIK DARLING MD ([id number]) on 08/16/2017 7:20:41 AM Electronically Signed By: MAIK DARLING MD 08/16/17 0720 PATIENT NAME: ROSANAQUENTIN ALLEN Electrocardiogram DATE OF : 54 PHYSICIAN: MAIK DARLING MD REPORT #: [id number] REPORT IS CONFIDENTIAL AND NOT TO BE RELEASED WITHOUT AUTHORIZATION
--- NOTE | 2017-08-20 17:18 | EKG ---
[facility] [address] [place] [address] Signed Normal sinus rhythm Left axis deviation Pulmonary disease pattern Incomplete right bundle branch block Abnormal ECG When compared with ECG of 15-AUG-2017 10:22, Incomplete right bundle branch block is now present Confirmed by SALAS MILLS MD ([id number]) on 08/20/2017 5:18:32 PM Electronically Signed By: SALAS MILLS MD 08/20/17 1718 PATIENT NAME: ROSANAQUENTIN ALLEN Electrocardiogram DATE OF : 54 PHYSICIAN: SALAS MILLS MD REPORT #: [id number] REPORT IS CONFIDENTIAL AND NOT TO BE RELEASED WITHOUT AUTHORIZATION
--- NOTE | 2017-08-21 17:02 | EKG ---
[facility] [address] [place] [address] Signed Sinus bradycardia Left axis deviation Normal Qtc Interval. Loss of R wave noted in the lateral leads. Confirmed by SALAS MILLS MD ([id number]) on 08/21/2017 5:02:43 PM Electronically Signed By: SALAS MILLS MD 08/21/17 1702 PATIENT NAME: QUENTIN WAYNE CAMILO Electrocardiogram DATE OF : 54 PHYSICIAN: SALAS MILLS MD REPORT #: [id number] REPORT IS CONFIDENTIAL AND NOT TO BE RELEASED WITHOUT AUTHORIZATION
[2017-08-28] MEDS ORDERED: FLECAINIDE ACE100 MG PO (14:51)
[2017-08-28] MEDS ORDERED: FLOMAX0.4 MG PO (14:51)
[2017-08-28] MEDS ORDERED: ZALEPLON10 MG PO (14:51)
[2017-08-28] MEDS ORDERED: LACTULOSE20 GM/30 M PO (14:51)
[2017-08-28] MEDS ORDERED: MAG-OXIDE400 MG PO (14:51)
[2017-08-28] MEDS ORDERED: SEROQUEL100 MG PO (14:51)
[2017-08-28] MEDS ORDERED: ELIQUIS5 MG PO (14:51)
[2017-08-28] MEDS ORDERED: MAPAP500 M1 PO (14:51)
[2017-08-28] MEDS ORDERED: SEROQUEL50 MG PO (14:51)
[2017-08-28] MEDS ORDERED: VITAMIN B-1100 MG PO (14:51)
[2017-08-28] MEDS ORDERED: SILENOR6 MG PO (14:51)
[2017-08-28] MEDS ORDERED: FOLIC ACID1 MG PO (14:51)
[2017-08-28] MEDS ORDERED: METOPROLOL TART25 MG PO (14:51)
[2017-08-28] MEDS ORDERED: VITAMIN B COMP1 EAC1 PO (14:51)
[2017-08-28] MEDS ORDERED: METOPROLOL SUCC25 MG PO (14:52)
== END 2017-08-30 10:15 | disposition home or self-care (01) | DRG 896 ==
LOC: ED 10:07 → CCU 15:11 → MS 15:11 → CCU 21:18 → MS 08-04 11:00 → CCU 08-14 16:40
PROVIDERS: ADMIT Internal Medicine
PROC: HZ2ZZZZ Detoxification Services for Substance Abuse Treatment (ICD-10-PCS; principal; 2017-07-29)
DX: F10.231 Alcohol dependence with withdrawal delirium (principal); K85.20 Alcohol induced acute pancreatitis without necrosis or infection; E51.2 Wernicke's encephalopathy; N39.0 Urinary tract infection, site not specified; D61.818 Other pancytopenia; R65.10 Systemic inflammatory response syndrome (SIRS) of non-infectious origin without acute organ dysfunction; G31.2 Degeneration of nervous system due to alcohol; B95.2 Enterococcus as the cause of diseases classified elsewhere; K70.0 Alcoholic fatty liver; I48.0 Paroxysmal atrial fibrillation; E03.9 Hypothyroidism, unspecified; N40.0 Benign prostatic hyperplasia without lower urinary tract symptoms; Z87.820 Personal history of traumatic brain injury; H53.2 Diplopia; E53.8 Deficiency of other specified B group vitamins
CPT/HCPCS: 36415; 51702; 51798; 70551; 71045; 74177; 80048; 80053; 80069; 80076; 81001; 82140; 82607; 82746; 83605; 83690; 83735; 84100; 84425; 84439; 84443; 85025; 85610; 85651; 87040; 87077; 87088; 87186; 93005; 93010; 94640; 94660; 94760; 96361; 96365; 96375; 96376; 97110; 97116; 97140; 97162; 97167; 97530; 97535; 99285; J0696; J2060; J2405; J2543; J2560; J3360; J3411; J3475; J3480; J7030; J7120; Q9967